=== PATIENT | female | born 1985 | race Caucasian/White ===

== ENCOUNTER 2017-08-12 11:23 | Outpatient (CLI) | payer BC ==
[2017-08-12 11:48] VITALS: BP 121/65; PULSE 96; RESP 16; TEMP 97.5
--- NOTE | 2017-08-13 06:28 | P.MSEPDOC ---
Presenting Problems - Arrival Data Date of Arrival on Unit: 08/12/17 Time of Arrival on Unit: 11:10 Mode of Transport: Ambulatory - Complaint OB-Reason for Admission/Chief Complaint: Pain, Other Comment: Non-productive cough lasting about three weeks with onset of right sided "rib" pain about a week ago. Rates pain 9/10 in intensity. Medical History - Information : 1 Para: 0 Term: 0 : 0 Abortions: Spontaneous or Elective: 0 Number of Living Children: 0 - Gestational Age Gestational Age by BARRETT (wks/days): 32 Weeks and 0 Days Review of Systems - Review of Systems Constitutional: No problems Breast: No problems ENT: No problems Cardiovascular: No problems Respiratory: No problems Gastrointestinal: No problems Genitourinary: No problems Musculoskeletal: No problems Neurological: No problems Skin: No problems Vital Signs - Temperature Temperature: 97.5 F Temperature Source: Temporal Artery Scan - Pulse Pulse Oximetery Pulse Rate: 96 Pulse Assessment Method: Pulse Oximetry - Respirations Respiratory Rate: 16 Oxygen Delivery Method: Room Air O2 Sat by Pulse Oximetry: 100 - Blood Pressure Right Arm Blood Pressure: 121/65 Blood Pressure Mean: 83 Blood Pressure Source: Automatic Cuff Medical Screen Scoring (Pre) - Cervical Exam Dilation: Exam Deferred Effacement: Exam Deferred - Uterine Contractions Frequency: N/A Duration: N/A Intensity: N/A - Maternal Vital Signs Maternal Temperature: N/A Maternal Blood Pressure: N/A Signs of Preeclampsia: N/A Maternal Respirations: N/A - Pain Assessment Pain Location and Character: Right Pain Scale Used: Numeric (1 - 10) Pain Intensity: 9 Pain Management Goal: 0 Pain Description: Sharp, Stabbing Pain Radiation Location: n/a Pain Frequency: Intermittent Pain Duration: 1 Pain Duration Units: week Pain Behavior: Vocalization Effects of Pain: none Pain Aggravating Factors: Cough and Deep Breathe, Coughing, Position Pharmacological Interventions: Discuss Pain Med Options Non-Pharmacological Interventions: Inactivity - Maternal Trauma Maternal Trauma: N/A - Assessment Baseline FHR: 135 Heart Rate - NICHD Category: Category I (Normal) = 0 NST: Reactive Position: N/A Station: N/A - Total Score Total Score (Pre): 0 - Level of Risk Level of Risk: Low (0-5) Physician Notification (Pre) - Physician Notified Physician Notified Date: 08/12/17 Physician Notified Time: 11:29 Physician/Practitioner Notifed:: Wil Spoke With: Wil New Order Received: Yes (Discharge from L&D and have patient f/u in ED for symptoms) - Notification Comment Comment: Cleared by OB, patient to follow up in the emergency department for evaluation of cough and right-sided rib pain. Disposition - Disposition OB Disposition: Discharge to home, Written follow up instructions reviewed Discharge Date: 08/12/17 Discharge Time: 11:40 I agree with the RN Medical Screening Exam: Yes Risk & Benefit of care provided described in d/c instruction: Yes Diagnosis: PAIN, UNSPECIFIED
== END 2017-08-12 11:40 | disposition home or self-care (01) ==
LOC: FBPOP 11:23
PROVIDERS: ATTEND Obstetrics & Gynecology
DX: O26.893 Other specified pregnancy related conditions, third trimester (principal); R07.81 Pleurodynia; R05 Cough; Z3A.32 32 weeks gestation of pregnancy
CPT/HCPCS: 59025; 99213

== ENCOUNTER 2017-08-12 11:46 | Emergency (ER) | payer BC ==
[2017-08-12 11:58] VITALS: BP 115/56; PULSE 104; RESP 18; TEMP 98.9
--- NOTE | 2017-08-12 12:33 | ED ---
General Adult HPI - General Chief complaint: Recheck/Abnormal Lab/Rx Stated complaint: Rib pain Time Seen by Provider: 08/12/17 12:16 Source: patient, RN notes reviewed Mode of arrival: ambulatory Limitations: no limitations - History of Present Illness Initial comments: This is a 32-year-old female, currently 32 weeks , who presents to the emergency department with chief complaint of right rib pain. Patient states that she has been having a non-productive, dry cough for the past few weeks. She states that it becomes worse at night. Denies any fevers or chills. She states that her LABORATORY MILLER is Dr. De La Torre. She states that this morning when she woke up her right ribs were more painful than they have been. She states that she was in excruciating pain. She was evaluated by labor and delivery before presenting to the emergency department and was cleared. Baby is doing well. Patient denies any abdominal pain, nausea or vomiting, vaginal bleeding or abnormal discharge. She states that she is worried that she may have cracked a rib. - Related Data Home Medications Medication Instructions Recorded Confirmed Cetirizine HCl [Zyrtec] 1 tab PO DAILY 08/12/17 08/12/17 Pnv,Calcium 72/Iron/Folic Acid 1 tab PO DAILY 08/12/17 08/12/17 [ Plus Tablet] Previous Rx's Medication Instructions Recorded Azithromycin [Zithromax Z-pack] 0 mg PO DIRECTED #6 tab 08/12/17 Allergies Allergy/AdvReac Type Severity Reaction Status Date / Time No Known Allergies Allergy Verified 08/12/17 12:21 Review of Systems ROS Statement: Those systems with pertinent positive or pertinent negative responses have been documented in the HPI. ROS Other: All systems not noted in ROS Statement are negative. Past Medical History Past Medical History: No Reported History Additional Past Medical History / Comment(s): gluten sensitive History of Any Multi-Drug Resistant Organisms: None Reported Past Surgical History: Orthopedic Surgery Additional Past Surgical History / Comment(s): abd lap, breast aug Past Psychological History: No Psychological Hx Reported Smoking Status: Never smoker Past Alcohol Use History: None Reported Past Drug Use History: None Reported General Exam - General Exam Comments Initial Comments: General: Awake and alert, well-developed; in no apparent distress. HEENT: Head atraumatic, normocephalic. Pupils are equal, round and reactive to light. Extraocular movements intact. Oropharynx moist without erythema or exudate. Neck: Supple. Normal ROM. Cardiovascular: Regular rate and rhythm. No murmurs, rubs or gallops. Chest symmetrical. Tenderness along right posterolateral ribs. Respiratory: Lungs clear to auscultation bilaterally. No wheezes, rales or rhonchi. Normal respiratory effort with no use of accessory muscles. Musculoskeletal: Normal ROM, no tenderness bilateral upper and lower extremities. Ambulating normally. Skin: [place], warm and dry. Neurological: Alert and oriented x3. CN II-XII grossly intact. Speech is fluent and answers are appropriate. No focal neuro deficits. Psychiatric: Normal mood and affect. No overt signs of depression or anxiety noted. Limitations: no limitations Course Vital Signs 08/12/17 08/12/17 11:55 12:15 Temperature 98.9 F Pulse Rate 104 H Respiratory 18 18 Rate Blood Pressure 115/56 O2 Sat by Pulse 99 Oximetry Medical Decision Making - Medical Decision Making This is a 32-year-old female, currently 32 weeks who presents to the emergency department with chief complaint of right rib pain. Patient has had a cough for the past few weeks and subsequently developed right-sided rib pain. She was evaluated by labor and delivery prior to arrival and was told that baby is doing well. There is tenderness on palpation of the right posterolateral ribs. Lungs are clear to auscultation bilaterally. I discussed this case with attending physician, Dr. Morales. Recommended avoiding chest x-ray and starting patient on azithromycin to cover any bacterial lung infection. I educated patient that if she did bruise her ribs from the frequent coughing that the only treatment for this is pain control. Recommended Tylenol if needed. Patient is in no acute distress and will be discharged home at this time. She is in agreement with plan and voices understanding. All questions answered. Disposition Clinical Impression: Rib pain on right side Disposition: HOME SELF-CARE Condition: Good Instructions: Chest Wall Pain (ED), Rib Contusion (ED) Additional Instructions: Please take medications as prescribed. Please follow up with primary care provider within 1-2 days. Return to emergency department if symptoms should worsen or any concerns arise. Prescriptions: Azithromycin [Zithromax Z-pack] 0 mg PO DIRECTED #6 tab Is patient prescribed a controlled substance at d/c from ED?: No Referrals: None,Stated [Primary Care Provider] - 1-2 days Time of Disposition: 12:32
== END 2017-08-12 12:39 | disposition home or self-care (01) ==
LOC: EC 11:46
DX: O99.89 Other specified diseases and conditions complicating pregnancy, childbirth and the puerperium (principal); R07.81 Pleurodynia; R05 Cough; Z3A.32 32 weeks gestation of pregnancy; Z79.899 Other long term (current) drug therapy
CPT/HCPCS: 99283

== ENCOUNTER 2017-10-01 05:15 | Outpatient (CLI) | payer BC ==
[2017-10-01 05:48] VITALS: BP 120/81; PULSE 83; RESP 16; TEMP 96.9
--- NOTE | 2017-10-01 07:13 | P.MSEPDOC ---
Presenting Problems - Arrival Data Date of Arrival on Unit: 10/01/17 Time of Arrival on Unit: 05:15 Mode of Transport: Ambulatory - Complaint OB-Reason for Admission/Chief Complaint: Possible Onset of Labor Comment: contractions 5-6 minutes apart starting at 0200 this morning Medical History - Information : 1 Para: 0 Term: 0 : 0 Abortions: Spontaneous or Elective: 0 Number of Living Children: 0 - Gestational Age Gestational Age by BARRETT (wks/days): 39 Weeks and 1 Days Review of Systems - Review of Systems Constitutional: No problems Breast: No problems ENT: No problems Cardiovascular: No problems Respiratory: No problems Gastrointestinal: No problems Genitourinary: No problems Musculoskeletal: No problems Neurological: No problems Skin: No problems Vital Signs - Temperature Temperature: 96.9 F Temperature Source: Temporal Artery Scan - Pulse Right Sitting Brachial Pulse Rate: 83 Pulse Assessment Method: Automatic Cuff - Respirations Respiratory Rate: 16 Oxygen Delivery Method: Room Air O2 Sat by Pulse Oximetry: 98 - Blood Pressure Right Arm Sitting Blood Pressure: 120/81 Blood Pressure Mean: 94 Blood Pressure Source: Automatic Cuff Medical Screen Scoring (Pre) - Cervical Exam Dilation: 1-3 cm = 1 Membranes: Intact - Uterine Contractions Frequency: > or = 36 weeks =2 Duration: > 40 seconds = 2 Intensity: N/A - Maternal Vital Signs Maternal Temperature: N/A Maternal Blood Pressure: N/A Signs of Preeclampsia: N/A Maternal Respirations: N/A - Pain Assessment Pain Location and Character: Lower, Back Pain Scale Used: Numeric (1 - 10) Pain Intensity: 8 Pain Management Goal: 3 Pain Description: *Acute, Cramping, Pressure Pain Radiation Location: abdomen Pain Frequency: Intermittent Pain Duration: 3 Pain Duration Units: Hours Pain Behavior: Facial Grimacing, Vocalization Pain Aggravating Factors: Sitting Non-Pharmacological Interventions: Position/Reposition - Assessment Baseline FHR: 145 Heart Rate - NICHD Category: Category I (Normal) = 0 NST: Reactive Position: N/A - Total Score Total Score (Pre): 5 - Level of Risk Level of Risk: Low (0-5) Physician Notification (Pre) - Physician Notified Physician Notified Date: 10/01/17 Physician Notified Time: 06:20 Physician/Practitioner Notifed:: afia Spoke With: afia New Order Received: Yes - Notification Comment Comment: dr oreilly at bedside. ordered to d/c pt home if no change after an hour. will see pt in office thursday 7-16 if she does not go into labor before. Disposition - Disposition OB Disposition: Discharge to home Discharge Date: 10/01/17 Discharge Time: 06:40 I agree with the RN Medical Screening Exam: Yes Risk & Benefit of care provided described in d/c instruction: Yes Diagnosis: FALSE LABOR AT OR AFTER 37 COMPLETED WEEKS OF GESTATION
== END 2017-10-01 06:40 | disposition home or self-care (01) ==
LOC: FBPOP 05:15
PROVIDERS: ATTEND Obstetrics & Gynecology
DX: O47.1 False labor at or after 37 completed weeks of gestation (principal); Z3A.39 39 weeks gestation of pregnancy
CPT/HCPCS: 59025; 99213

== ENCOUNTER 2017-10-04 16:12 | Outpatient (CLI) | payer BC ==
[2017-10-04 17:34] VITALS: BP 119/63; PULSE 100; RESP 18; TEMP 97.7
--- NOTE | 2017-10-05 09:30 | P.MSEPDOC ---
Presenting Problems - Arrival Data Date of Arrival on Unit: 10/04/17 Time of Arrival on Unit: 16:12 Mode of Transport: Ambulatory - Complaint OB-Reason for Admission/Chief Complaint: Possible Onset of Labor Comment: ctx started increasing in strength and frequency about 1400, 2-3 min apart Medical History - Information : 1 Para: 0 Term: 0 : 0 Abortions: Spontaneous or Elective: 0 Number of Living Children: 0 - Gestational Age Gestational Age by BARRETT (wks/days): 39 Weeks and 4 Days Review of Systems - Review of Systems Constitutional: No problems Breast: No problems ENT: No problems Cardiovascular: No problems Respiratory: No problems Gastrointestinal: No problems Genitourinary: No problems Musculoskeletal: No problems Neurological: No problems Skin: No problems Vital Signs - Temperature Temperature: 97.7 F Temperature Source: Temporal Artery Scan - Pulse Right Pulse Rate: 100 Pulse Assessment Method: Automatic Cuff - Respirations Respiratory Rate: 18 Oxygen Delivery Method: Room Air O2 Sat by Pulse Oximetry: 98 - Blood Pressure Right Arm Blood Pressure: 119/63 Blood Pressure Mean: 81 Blood Pressure Source: Automatic Cuff Medical Screen Scoring (Pre) - Cervical Exam Dilation: 1-3 cm = 1 Membranes: Intact - Uterine Contractions Frequency: > or = 36 weeks =2 Duration: > 40 seconds = 2 Intensity: N/A - Maternal Vital Signs Maternal Temperature: N/A Maternal Blood Pressure: N/A Signs of Preeclampsia: N/A Maternal Respirations: N/A - Pain Assessment Pain Location and Character: Back, Abdomen Pain Scale Used: Numeric (1 - 10) Pain Intensity: 5 Pain Management Goal: 2 Pain Description: *Acute, Tightness Pain Frequency: Intermittent Pain Duration: 2 Pain Duration Units: Hours Pain Behavior: Facial Grimacing Pain Aggravating Factors: Contractions Non-Pharmacological Interventions: Position/Reposition, Reduce Environmental Stimuli, Relaxation Technique - Maternal Trauma Maternal Trauma: N/A - Assessment Baseline FHR: 140 Heart Rate - NICHD Category: Category II (Indeterminate) = 3 NST: Reactive Position: N/A Station: N/A - Total Score Total Score (Pre): 8 - Level of Risk Level of Risk: Medium (6-9) Medical Screen Scoring (Post) - Cervical Exam Dilation: 1-3 cm = 1 Membranes: Intact - Uterine Contractions Frequency: > or = 36 weeks =2 Duration: > 40 seconds = 2 - Assessment Heart Rate: 125 Heart Rate - NICHD Category: Category I (Normal) = 0 NST: Reactive Position: N/A - Total Score Total Score (Post): 5 - Post Treatment Level of Risk Post Treatment Level of Risk: Low (0-5) Physician Notification (Post) - Physician Notified Physician Notified Date: 10/04/17 Physician Notified Time: 17:58 Spoke With: Pao New Order Received: Yes (discharge if no cervical record changer tester 2 hours) - Notification Comment Comment: no change after second hour Disposition - Disposition OB Disposition: Discharge to home, Written follow up instructions reviewed Discharge Date: 10/04/17 Discharge Time: 19:05 I agree with the RN Medical Screening Exam: Yes Risk & Benefit of care provided described in d/c instruction: Yes Diagnosis: FALSE LABOR AT OR AFTER 37 COMPLETED WEEKS OF GESTATION
== END 2017-10-04 19:05 | disposition home or self-care (01) ==
LOC: FBPOP 16:12
PROVIDERS: ATTEND Obstetrics & Gynecology
DX: O47.1 False labor at or after 37 completed weeks of gestation (principal); Z3A.39 39 weeks gestation of pregnancy
CPT/HCPCS: 59025; 99213

== ENCOUNTER 2017-10-05 17:00 | Inpatient (IN) | payer BC ==
--- NOTE | 2017-10-06 05:52 | P.HPOB ---
History of Present Illness H&P Date: 10/06/17 Chief Complaint: Maternal discomfort requesting induction of labor This patient is a pleasant 32-year-old 1 para 0 female estimated date of confinement 10/07/2017 estimated gestational age 39-6/7 weeks who presents to labor and delivery for requested induction of labor. Patient has been in labor and delivery couple times over the last few days with contractions and discomfort at this time is requesting induction of labor. care has been complicated by a EIF and she was referred to maternal- medicine for level III consultation. Evaluation of that time was negative. Patient is been followed with nonstress tests and has had normal surveillance. Patient is now presenting for requested induction of labor. Review of Systems Gastrointestinal: Reports heartburn Genitourinary: Reports Menstruation: Reports amenorrhea Past Medical History Past Medical History: No Reported History Additional Past Medical History / Comment(s): gluten sensitive; anorexia nervosa age 14-23. History of Any Multi-Drug Resistant Organisms: None Reported Past Surgical History: Orthopedic Surgery Additional Past Surgical History / Comment(s): abd lap, breast aug Past Anesthesia/Blood Transfusion Reactions: No Reported Reaction Past Psychological History: No Psychological Hx Reported Smoking Status: Never smoker Past Alcohol Use History: None Reported Past Drug Use History: None Reported Medications and Allergies Home Medications Medication Instructions Recorded Confirmed Type Cetirizine HCl [Zyrtec] 1 tab PO DAILY 08/12/17 10/04/17 History Pnv,Calcium 72/Iron/Folic Acid 1 tab PO DAILY 08/12/17 10/04/17 History [ Plus Tablet] Allergies Allergy/AdvReac Type Severity Reaction Status Date / Time No Known Allergies Allergy Verified 10/04/17 16:22 Exam - OBG Physical Exam Abdomen: bowel sounds normal, no diffuse tenderness, no bruit present, no guarding noted, no hepatomegaly, no splenomegaly, no mass Vulva: both: normal Vagina: normal moisture, no discharge Cervix: Cervix in the office is 1-2 cm dilated 50% effaced. Uterus: enlarged (Fundal height is 38 cm.) Results blood work shows she is O positive, rubella immune, RPR nonreactive, hepatitis B negative, HIV nonreactive, quad screen was negative, Glucola was normal, group B strep was negative, anatomy ultrasounds as above with a normal level III ultrasound. Estimated weight is approximately 8-8-1/2 pounds. Assessment and Plan Assessment: This is a pleasant 32-year-old 1 para 0 female 39-6/7 weeks gestation who is admitted to labor and delivery for requested induction of labor. Plan is induction of labor and anticipate vaginal delivery. (1) Third trimester Current Visit: Yes Status: Acute Code(s): Z34.93 - ENCNTR FOR SUPRVSN OF NORMAL PREG, UNSP, THIRD TRIMESTER SNOMED Code(s): 01959624 (2) Elective induction of labor planned Current Visit: Yes Status: Acute Code(s): ZKG3831 - SNOMED Code(s): 746684819
[2017-10-06] MEDS: LACTATED RINGERS 1,000 ML IV SCH ×5 (05:53→21:37)
[2017-10-06] MEDS ORDERED: CARBOPROST TROMETHAMINE 250 MCG/ML 1 ML AMP IM PRN (05:53)
[2017-10-06] MEDS ORDERED: METHYLERGONOVINE 0.2 MG/ML 1 ML AMP IM PRN (05:53)
[2017-10-06] MEDS ORDERED: OXYTOCIN 20 UNITS/1000 ML NS 1,000 ML IV SCH (05:53)
[2017-10-06] MEDS ORDERED: LIDOCAINE 1% (PF) 10 MG/ML (30 ML SDV) SQ PRN (05:53)
[2017-10-06] MEDS ORDERED: TERBUTALINE 1 MG/ML VIAL SQ PRN (05:53)
[2017-10-06] MEDS ORDERED: OXYTOCIN 10 UNIT/ML 1 ML VIAL IM PRN (05:53)
[2017-10-06 06:22] LABS: Basophils % (A) 0 %; Eosinophils # (A) 0.1 k/uL (0-0.7); Eosinophils % (A) 1 %; HCT 37.4 % (34.0-46.0); HGB 12.7 gm/dL (11.4-16.0); Lymphocytes # (A) 2.2 k/uL (1.0-4.8); Lymphocytes % (A) 19 %; MCH 31.2 pg (25.0-35.0); MCHC 33.9 g/dL (31.0-37.0); MCV 91.9 fL (80.0-100.0); Monocytes # (A) 0.6 k/uL (0-1.0); Monocytes % (A) 5 %; Neutrophils # (A) 8.7 k/uL (1.3-7.7); Neutrophils % (A) 73 %; Platelet Count 235 k/uL (150-450); RBC 4.07 m/uL (3.80-5.40); RDW 13.9 % (11.5-15.5); WBC 11.9 k/uL (3.8-10.6)
[2017-10-06] MEDS ORDERED: BUTORPHANOL 1 MG/ML 1 ML VIAL IV PRN (10:20)
[2017-10-06] MEDS ORDERED: ROPIVACAINE 100 MG, fentaNYL (PF) 200 MCG in SODIUM CHLORIDE 0.9% 76 ML EPIDURAL ONE (12:03)
[2017-10-06] MEDS ORDERED: AMPICILLIN 2,000 MG in SODIUM CHLORIDE 0.9% 100 ML IVPB STA (18:15)
[2017-10-06] MEDS ORDERED: ceFAZolin IN SWFI 2 GM/20 ML SYRINGE IVP ONE (19:47)
[2017-10-06] MEDS ORDERED: CITRIC ACID-SODIUM CITRATE 15 ML CUP PO ONE (19:47)
[2017-10-06] MEDS ORDERED: KETOROLAC 30 MG/ML 1 ML VIAL ONE (20:03)
[2017-10-06] MEDS ORDERED: OXYTOCIN 10 UNIT/ML 1 ML VIAL ONE (20:03)
[2017-10-06] MEDS ORDERED: MORPHINE SULFATE 10 MG/ML SYRINGE ONE (20:03)
[2017-10-06] MEDS ORDERED: MORPHINE SULFATE (PF) 0.3 MG/0.3 ML SYR ONE (20:03)
[2017-10-06] MEDS ORDERED: ONDANSETRON 4 MG/2 ML VIAL ONE (20:03)
[2017-10-06] MEDS ORDERED: ZOLPIDEM 5 MG TAB PO PRN (20:56)
[2017-10-06] MEDS ORDERED: ONDANSETRON 4 MG/2 ML VIAL IVP PRN (20:56)
[2017-10-06] MEDS ORDERED: METOCLOPRAMIDE 5 MG/ML 2 ML VIAL IVP PRN (20:56)
[2017-10-06] MEDS ORDERED: diphenhydrAMINE 50 MG CAP PO PRN (20:56)
[2017-10-06] MEDS ORDERED: diphenhydrAMINE 50 MG/ML 1 ML VIAL IVP PRN ×2 (20:56)
[2017-10-06] MEDS ORDERED: diphenhydrAMINE 25 MG CAP PO PRN (20:56)
[2017-10-06] MEDS ORDERED: NALOXONE 0.4 MG/ML 1 ML VIAL IV PRN (20:56)
--- NOTE | 2017-10-06 21:07 | P.OP ---
Date of Procedure: 10/06/17 Preoperative Diagnosis: #1: 39-6/7 week intrauterine . #2: Cephalopelvic dystocia and failure to descent. #3: Nonreassuring heart tones. Postoperative Diagnosis: Same Procedure(s) Performed: Primary low transverse section Anesthesia: epidural Surgeon: Rodo De La Torre Loan Manager #1: Ly Cedeno Estimated Blood Loss (ml): 800 Urine output (ml): 50 Pathology: none sent Condition: stable Disposition: floor Indications for Procedure: Please see dictated H&P for intimate details of this patient's admission. Brief summary this is a pleasant 32-year-old 1 para 0 female 39-6/7 weeks gestation who is admitted to labor and delivery this morning for induction of labor. Patient's had contractions on and off for the last several days and thought to be in early labor but continues to be uncomfortable and requesting induction at this time. Patient is admitted and is 1-2 cm dilated has artificial rupture membranes for clear fluid. Labor is induced and augmented with Pitocin per protocol. Patient's labor does progress and she received one dose of intrapartum Stadol and then an epidural for pain control. Patient does get complete but the head does not pass 0 station. She pushes for approximately 45 minutes and then began having some late decelerations. These do resolve with the usual resuscitative measures including shutting off the Pitocin and IV fluids. At this time I discussed with the patient and her my concerns and recommended proceed with section for delivery. Patient her agree in the understand the risk of this surgery including risks of infection, bleeding, possible injury bowel, bladder, risk of DVT and pulmonary embolism. All the patient's questions are answered written consent is obtained. Operative Findings: This is a vigorous viable female Apgars 8 and 9 delivery time was 2026 hours. It was in the right occiput transverse presentation with a nuchal cord 1. Description of Procedure: This patient has a Oliveira catheter placed to straight drain. She subsequent weight taken to the operating room where the epidural is dosed up for sufficient level of surgery. With adequate level of anesthesia she has abdominal prep and drape. Scalpel is then taken and a Pfannenstiel skin incision is then made. A second scalpel is taken down the fascia and the fascia scored with a knife. Fascial incision extended bilaterally using the [place] scissors. Fascia is dissected off the rectus muscles sharply. Rectus muscles are and the peritoneum was identified and entered sharply. Peritoneal incision extended superior and inferior without difficulty. Bladder blade is placed at this time. Bladder peritoneum was taken sharply off the lower uterine segment. Scalpels then taken and a low transverse uterine incision is then made. I enter the uterine cavity bluntly with a hemostat and there is loss of clear fluid. This incision is extended bluntly. Infant's head is then gently guided out of the pelvis and with fundal pressure delivered through the incision. It is right occiput posterior presentation. Nuchal cord 1 which is easily reduced. We then have delivery anterior posterior shoulders rest this infant's body. This is a vigorous viable female Apgars are 8 and 9 delivery time is 2026. If it has spontaneous respirations and good cry. Umbilical cord is doubly clamped and then cut and the is handed off to the nurses in attendance. The placenta is then manually extracted intact. The uterus is then externalized and uterine incision demarcated with Hoskins clamps. Uterine incision then closed in 0 Vicryl running locked fashion 2 layers. Excellent hemostasis is noted. Bladder peritoneum was then reapproximated using a 3-0 Vicryl. Again good reapproximation is noted. Excess fluid is removed from the abdomen and pelvis. Uterus tubes and ovaries appear normal for term gestation. Uterus placed back into the abdomen. Parietal peritoneum was then closed using 0 Vicryl running fashion. Rectus muscles are reapproximated in 0 Vicryl interrupted fashion. Fascia is then closed using 0 PDS. Fascial incision is intact and hemostatic. Subcutaneous tissue is then closed using a 3-0 Vicryl. Skin is and closed using mirela. All counts are correct 3. There are no complications. Infant and mother are stable in birthing room.
[2017-10-06] MEDS ORDERED: LANOLIN CREAM 5 GM TUBE TOPICAL PRN (21:09)
[2017-10-07] MEDS ORDERED: KETOROLAC 30 MG/ML 1 ML VIAL ONE (02:50)
[2017-10-07] MEDS: ceFAZolin IN SWFI 2 GM/20 ML SYRINGE IVP SCH ×2 (05:09→11:49)
--- NOTE | 2017-10-07 06:37 | P.PNOBGPC ---
Subjective - Subjective Patient reports: Reports appetite normal, Reports voiding normally, Reports pain well controlled, Reports ambulating normally Ramah: doing well Objective - Vital Signs Latest vital signs: Vital Signs Temp Pulse Resp BP Pulse Ox 10/06/17 22:53 98.4 F 100 17 121/84 10/06/17 22:23 106 H 17 123/60 10/06/17 21:53 103 H 18 127/74 96 10/06/17 21:38 96 18 117/62 100 10/06/17 21:23 104 H 17 113/55 100 10/06/17 21:08 115 H 15 124/55 100 10/06/17 20:53 97.7 F 101 H 16 128/69 97 Intake and Output 10/06/17 10/06/17 10/07/17 14:59 22:59 06:59 Intake Total 2000 Output Total 400 Balance 2000 -400 Intake: Intake, IV Titration 2000 Amount Lactated Ringers 1,000 ml 2000 @ 125 mls/hr IV .Q8H THEODORE Rx#:[id number] Output: Urine 400 Other: Voiding Method Indwelling Catheter Indwelling Catheter # Voids 0 - Exam Lungs: bilateral: normal Chest: Normal S1, Normal S2 Extremities: Present: normal Abdomen: Present: normal appearance, soft. Absent: distention, tenderness Incision: Present: normal, dry, intact Uterus: Present: normal, firm Assessment and Plan Assessment: Postoperative day #1. Patient is resting without complaints. Vital signs are stable she's afebrile. Initially she had some oozing from her incision but this is stopped. Patient is tolerating clear liquids and advanced to regular diet today uterus is firm nontender and her incision is intact and dry. Plan is to advance to regular diet, check CBC, encourage ambulation, and continue routine postoperative care. (1) Third trimester Current Visit: Yes Status: Acute Code(s): Z34.93 - ENCNTR FOR SUPRVSN OF NORMAL PREG, UNSP, THIRD TRIMESTER SNOMED Code(s): 75807501 (2) Elective induction of labor planned Current Visit: Yes Status: Acute Code(s): [id number] - SNOMED Code(s): 967573472
--- NOTE | 2017-10-07 06:40 | P.PN ---
Progress Note - Text Progress Note Date: 10/07/17 Postoperative day 1 status post section under epidural anesthesia and epidural Duramorph for postoperative analgesia.The patient is doing well, there is mild generalized skin itching. There are no other anesthesia related complications. Further management as per the patient primary team.
[2017-10-07] MEDS: LACTATED RINGERS 1,000 ML IV SCH (07:24)
[2017-10-07] MEDS: KETOROLAC 30 MG/ML 1 ML VIAL IVP PRN ×3 (08:28→20:57)
[2017-10-07] MEDS: SENNOSIDES-DOCUSATE SODIUM 1 EACH TAB PO SCH ×2 (08:30→19:33)
[2017-10-07 09:00] LABS: Basophils % (A) 0 %; Eosinophils # (A) 0.1 k/uL (0-0.7); Eosinophils % (A) 0 %; HCT 36.9 % (34.0-46.0); Lymphocytes # (A) 1.6 k/uL (1.0-4.8); Lymphocytes % (A) 8 %; MCH 30.2 pg (25.0-35.0); MCHC 32.4 g/dL (31.0-37.0); MCV 93.3 fL (80.0-100.0); Mean Platelet Volume 8.3; Monocytes # (A) 0.9 k/uL (0-1.0); Monocytes % (A) 4 %; Neutrophils # (A) 17.9 k/uL (1.3-7.7); Neutrophils % (A) 87 %; Platelet Count 228 k/uL (150-450); RBC 3.96 m/uL (3.80-5.40); RDW 13.8 % (11.5-15.5); WBC 20.6 k/uL (3.8-10.6)
[2017-10-07] MEDS: SIMETHICONE 80 MG CHEWABLE PO PRN (19:35)
[2017-10-07] MEDS ORDERED: SIMETHICONE 80 MG CHEWABLE PO SCH (22:00)
[2017-10-08] MEDS: ACETAMINOPHEN TAB 325 MG TAB PO PRN ×3 (01:08→14:13)
[2017-10-08] MEDS: SIMETHICONE 80 MG CHEWABLE PO PRN ×2 (04:23→14:14)
[2017-10-08] MEDS: IBUPROFEN 600 MG TAB PO PRN ×3 (04:23→20:14)
[2017-10-08 06:03] LABS: Basophils # (A) 0.1 k/uL (0-0.2); Basophils % (A) 0 %; Eosinophils # (A) 0.2 k/uL (0-0.7); Eosinophils % (A) 1 %; HCT 32.6 % (34.0-46.0); HGB 10.6 gm/dL (11.4-16.0); Lymphocytes # (A) 2.1 k/uL (1.0-4.8); Lymphocytes % (A) 14 %; MCH 30.8 pg (25.0-35.0); MCHC 32.6 g/dL (31.0-37.0); MCV 94.4 fL (80.0-100.0); Mean Platelet Volume 7.9; Monocytes # (A) 0.8 k/uL (0-1.0); Monocytes % (A) 5 %; Neutrophils # (A) 12.1 k/uL (1.3-7.7); Neutrophils % (A) 78 %; Platelet Count 213 k/uL (150-450); RBC 3.46 m/uL (3.80-5.40); RDW 14.2 % (11.5-15.5); WBC 15.6 k/uL (3.8-10.6)
--- NOTE | 2017-10-08 06:11 | P.PNOBGPC ---
Subjective - Subjective Patient reports: Reports appetite normal, Reports voiding normally, Reports pain well controlled, Reports ambulating normally : doing well, other (Jaundice) Objective - Vital Signs Latest vital signs: Vital Signs Temp Pulse Resp BP Pulse Ox 10/08/17 00:00 97.9 F 87 16 101/53 10/07/17 20:00 98.6 F 95 16 110/66 97 10/07/17 16:00 98.3 F 99 18 107/64 97 10/07/17 12:00 97.9 F 96 18 112/68 96 10/07/17 08:00 98.0 F 104 H 18 123/66 97 Intake and Output 10/07/17 10/07/17 10/08/17 14:59 22:59 06:59 Intake Total 600 Output Total 1150 Balance -1150 600 Intake: Oral 600 Output: Urine 1150 Other: # Voids 1 1 2 - Exam Lungs: bilateral: normal Chest: Normal S1, Normal S2 Extremities: Present: normal Abdomen: Present: normal appearance, soft. Absent: distention, tenderness Incision: Present: normal, dry, intact Uterus: Present: normal, firm - Labs Labs: Abnormal Lab Results - Last 24 Hours (Table) 10/07/17 10/08/17 Range/Units 07:51 05:29 WBC 20.6 H 15.6 H (3.8-10.6) k/uL RBC 3.46 L (3.80-5.40) m/uL Hgb 10.6 L (11.4-16.0) gm/dL Hct 32.6 L (34.0-46.0) % Neutrophils # 17.9 H 12.1 H (1.3-7.7) k/uL Assessment and Plan Assessment: Post operative day #2. Patient is resting without complaints. Vital signs are stable and she is afebrile. Uterus is firm nontender she's having normal lochia. Baby is having some issues with jaundice therefore they will continue to stay in the hospital. Plan is to continue routine postoperative care. (1) Third trimester Current Visit: Yes Status: Acute Code(s): Z34.93 - ENCNTR FOR SUPRVSN OF NORMAL PREG, UNSP, THIRD TRIMESTER SNOMED Code(s): 89503824 (2) Elective induction of labor planned Current Visit: Yes Status: Acute Code(s): SDH3843 - SNOMED Code(s): 695989969
[2017-10-08] MEDS: SENNOSIDES-DOCUSATE SODIUM 1 EACH TAB PO SCH ×2 (07:38→20:15)
[2017-10-08] MEDS ORDERED: ACETAMINOPHEN TAB 325 MG TAB ONE (23:00)
[2017-10-09] MEDS ORDERED: IBUPROFEN 600 MG TAB PO ONE (03:39)
--- NOTE | 2017-10-09 05:54 | P.PNOBGPC ---
Subjective - Subjective Patient reports: Reports appetite normal, Reports voiding normally, Reports pain well controlled, Reports ambulating normally : doing well, in NICU (Jaundice) Objective - Vital Signs Latest vital signs: Vital Signs Temp Pulse Resp BP Pulse Ox 10/08/17 15:53 98.1 F 95 18 125/70 98 10/08/17 08:00 97.9 F 77 18 111/61 98 Intake and Output 10/08/17 10/08/17 10/09/17 14:59 22:59 06:59 Other: # Voids 1 1 - Exam Lungs: bilateral: normal Chest: Normal S1, Normal S2 Extremities: Present: normal Abdomen: Present: normal appearance, soft. Absent: distention, tenderness Incision: Present: normal, dry, intact Uterus: Present: normal, firm - Labs Labs: Abnormal Lab Results - Last 24 Hours (Table) 10/08/17 Range/Units 05:29 WBC 15.6 H (3.8-10.6) k/uL RBC 3.46 L (3.80-5.40) m/uL Hgb 10.6 L (11.4-16.0) gm/dL Hct 32.6 L (34.0-46.0) % Neutrophils # 12.1 H (1.3-7.7) k/uL Assessment and Plan Assessment: Post operative day #3. Patient is resting without complaints. Patient is having some anxiety issues and therefore I'm going to give her some when necessary Xanax. Vital signs are stable she is afebrile. Uterus is firm nontender and her incision is intact and dry. CBC was normal. Patient is tolerating regular diet, ambulating, urinating without difficulty. Patient's baby is having issues with jaundice and requiring triple therapy therefore she will stay until tomorrow. Plan is to continue routine postoperative care. (1) Third trimester Current Visit: Yes Status: Acute Code(s): Z34.93 - ENCNTR FOR SUPRVSN OF NORMAL PREG, UNSP, THIRD TRIMESTER SNOMED Code(s): 41752062 (2) Elective induction of labor planned Current Visit: Yes Status: Acute Code(s): OTZ3956 - SNOMED Code(s): 740880228
[2017-10-09] MEDS ORDERED: ALPRAZolam 0.5 MG TAB PO PRN (05:55)
[2017-10-09] MEDS: SENNOSIDES-DOCUSATE SODIUM 1 EACH TAB PO SCH ×2 (07:23→22:03)
[2017-10-09] MEDS: IBUPROFEN 600 MG TAB PO PRN ×3 (10:04→22:02)
[2017-10-09] MEDS: ACETAMINOPHEN TAB 325 MG TAB PO PRN (18:44)
[2017-10-10] MEDS: IBUPROFEN 600 MG TAB PO PRN ×3 (03:47→19:02)
--- NOTE | 2017-10-10 06:59 | P.PNOBGPC ---
Subjective - Subjective Patient reports: Reports appetite normal, Reports voiding normally, Reports pain well controlled, Reports ambulating normally : doing well, in NICU (Jaundice) Objective - Vital Signs Latest vital signs: Vital Signs Temp Pulse Resp BP 10/10/17 00:00 97.9 F 87 15 124/78 10/09/17 16:00 98.3 F 84 16 125/80 10/09/17 08:00 98.1 F 81 16 97/53 Intake and Output 10/09/17 10/09/17 10/10/17 14:59 22:59 06:59 Other: # Voids 2 1 1 - Exam Lungs: bilateral: normal Chest: Normal S1, Normal S2 Extremities: Present: normal Abdomen: Present: normal appearance, soft. Absent: distention, tenderness Incision: Present: normal, dry, intact Uterus: Present: normal, firm Assessment and Plan Assessment: Postoperative day #4. Patient is resting without complaints. Vital signs are stable she is afebrile. Uterus is firm nontender her incision is intact and dry. Patient is tolerating regular diet, urinating, ambulating without difficulty. Patient's baby is still having issues with jaundice however patient will need to be discharged home today. Plan is to continue routine care discharge home today (1) Third trimester Current Visit: Yes Status: Acute Code(s): Z34.93 - ENCNTR FOR SUPRVSN OF NORMAL PREG, UNSP, THIRD TRIMESTER SNOMED Code(s): 77724165 (2) Elective induction of labor planned Current Visit: Yes Status: Acute Code(s): CFS3621 - SNOMED Code(s): 173769195
--- NOTE | 2017-10-10 07:06 | P.DS ---
Providers Date of admission: 10/06/17 05:42 Expected date of discharge: 10/10/17 Attending physician: Rodo De La Torre Primary care physician: Stated None - Discharge Diagnosis(es) (1) Third trimester Current Visit: Yes Status: Acute (2) Elective induction of labor planned Current Visit: Yes Status: Acute Hospital Course: Please see dictated H&P for intimate details of this patient's admission. Brief summary this is a pleasant 32-year-old female 39-6/7 weeks gestation admitted to labor and delivery for induction of labor/augmentation. Patient subsequently undergoes a primary low transverse section for cephalopelvic dystocia. Please see dictated operative note. Postoperatively patient does well and on postoperative 4 felt to be stable for discharge home follow up with me in 1 week. Procedures: Augmentation of labor and primary low transverse section Patient Condition at Discharge: Good Plan - Discharge Summary New Discharge Prescriptions: New Ibuprofen [Motrin] 600 mg PO Q6HR PRN #40 tab PRN Reason: Mild Pain Or Fever >= 100.5 No Action Cetirizine HCl [Zyrtec] 1 tab PO DAILY Pnv,Calcium 72/Iron/Folic Acid [ Plus Tablet] 1 tab PO DAILY Discharge Medication List Cetirizine HCl [Zyrtec] 1 tab PO DAILY 08/12/17 [History] Pnv,Calcium 72/Iron/Folic Acid [ Plus Tablet] 1 tab PO DAILY 08/12/17 [ History] Ibuprofen [Motrin] 600 mg PO Q6HR PRN #40 tab 10/10/17 [Rx] Follow up Appointment(s)/Referral(s): Rodo De La Torre MD [STAFF PHYSICIAN] - 10/21/17 8:45 am (I will schedule her 6 weeks appointment at her postoperative visit.) Patient Instructions/Handouts: (DC) Activity/Diet/Wound Care/Special Instructions: No heavy lifting or strenuous activity for 6 weeks. No intercourse or anything per vagina for 6 weeks. Please call if any fever, chills, excessive vaginal bleeding, and/or abdominal pain. Discharge Disposition: HOME SELF-CARE
[2017-10-10 08:39] VITALS: RESP 16
[2017-10-10] MEDS: SENNOSIDES-DOCUSATE SODIUM 1 EACH TAB PO SCH (08:40)
[2017-10-10 15:49] VITALS: BP 127/63; PULSE 76; TEMP 98.4
== END 2017-10-10 19:05 | disposition home or self-care (01) | DRG 766 ==
LOC: 4FBP 10-06 05:42
PROVIDERS: ADMIT Obstetrics & Gynecology; ATTEND Obstetrics & Gynecology
PROC: 3E033VJ Introduction of Other Hormone into Peripheral Vein, Percutaneous Approach (ICD-10-PCS; 2017-10-06)
PROC: 10907ZC Drainage of Amniotic Fluid, Therapeutic from Products of Conception, Via Natural or Artificial Opening (ICD-10-PCS; 2017-10-06)
PROC: 00HU33Z Insertion of Infusion Device into Spinal Canal, Percutaneous Approach (ICD-10-PCS; 2017-10-06)
PROC: 3E0R3BZ Introduction of Anesthetic Agent into Spinal Canal, Percutaneous Approach (ICD-10-PCS; 2017-10-06)
PROC: 10D00Z1 Extraction of Products of Conception, Low, Open Approach (ICD-10-PCS; principal; 2017-10-06 20:27)
DX: O33.9 Maternal care for disproportion, unspecified (principal); Z37.0 Single live birth; O99.344 Other mental disorders complicating childbirth; O32.4XX0 Maternal care for high head at term, not applicable or unspecified; O69.81X0 Labor and delivery complicated by cord around neck, without compression, not applicable or unspecified; O76 Abnormality in fetal heart rate and rhythm complicating labor and delivery; F41.9 Anxiety disorder, unspecified; Z3A.39 39 weeks gestation of pregnancy; Z86.59 Personal history of other mental and behavioral disorders
CPT/HCPCS: 85025

== ENCOUNTER → 2018-04-30 | Outpatient (CLI) | payer BC | END | disposition home or self-care (01) | LOC: LABWHC1 07:59 | PROVIDERS: ATTEND Obstetrics & Gynecology | DX: N91.2 Amenorrhea, unspecified (principal) | CPT/HCPCS: 36415; 84702 ==

== ENCOUNTER → 2018-10-07 | Outpatient (CLI) | payer BC | END | disposition home or self-care (01) | LOC: LAB 15:36 | PROVIDERS: ATTEND Obstetrics & Gynecology | DX: Z34.81 Encounter for supervision of other normal pregnancy, first trimester (principal) | CPT/HCPCS: 84702 ==

== ENCOUNTER → 2018-10-11 | Outpatient (CLI) | payer BC | END | disposition home or self-care (01) | LOC: LABWHC1 10:40 | PROVIDERS: ATTEND Obstetrics & Gynecology | DX: N92.6 Irregular menstruation, unspecified (principal) | CPT/HCPCS: 36415; 84702 ==

== ENCOUNTER → 2018-11-20 | Outpatient (CLI) | payer BC ==
[2018-11-20 09:40] LABS: HCT 40.2 % (34.0-46.0); HGB 13.5 gm/dL (11.4-16.0); MCH 30.4 pg (25.0-35.0); MCHC 33.5 g/dL (31.0-37.0); MCV 90.8 fL (80.0-100.0); Mean Platelet Volume 7.9; Platelet Count 243 k/uL (150-450); RBC 4.43 m/uL (3.80-5.40); RDW 14.2 % (11.5-15.5); WBC 8.9 k/uL (3.8-10.6)
[2018-11-20 17:04] LABS: African American GFR (CKD) 136.9 (60.0-200.0)
[2018-11-23 05:07] LABS: Toxoplasma Antibody (IgG) <3.0 IU/mL (<7.2); Toxoplasma Antibody (IgM) <3.0 AU/mL (<8.0)
== END | disposition home or self-care (01) ==
LOC: LABWHC1 09:06
PROVIDERS: ATTEND Obstetrics & Gynecology
DX: Z34.81 Encounter for supervision of other normal pregnancy, first trimester (principal)
CPT/HCPCS: 36415; 82565; 82947; 85027; 86762; 86777; 86778; 86780; 86850; 86900; 86901; 87340

== ENCOUNTER → 2019-03-12 | Outpatient (CLI) | payer BC ==
[2019-03-12 10:36] LABS: HCT 37.2 % (34.0-46.0); HGB 12.5 gm/dL (11.4-16.0); MCHC 33.5 g/dL (31.0-37.0); MCV 95.5 fL (80.0-100.0); Mean Platelet Volume 7.9; Platelet Count 235 k/uL (150-450); RDW 13.1 % (11.5-15.5); WBC 10.7 k/uL (3.8-10.6)
== END | disposition home or self-care (01) ==
LOC: LABWHC1 09:04
PROVIDERS: ATTEND Obstetrics & Gynecology
DX: Z34.82 Encounter for supervision of other normal pregnancy, second trimester (principal)
CPT/HCPCS: 36415; 82950; 84439; 84443; 84479; 85027

== ENCOUNTER 2019-04-19 12:24 | Observation (INO) | payer BC ==
[2019-04-19 12:57] LABS: Appearance,Urine Cloudy (Clear); Bacteria,Urine Occasional /hpf; Bilirubin,Urine Negative (Negative); Blood,Urine Negative (Negative); Color,Urine Yellow; Glucose,Urine (UA) Negative (Negative); Ketones,Urine 3+ (Negative); Leukocyte Esterase,Urine Moderate (Negative); Mucus,Urine Rare /hpf; Nitrite,Urine Negative (Negative); Protein,Urine Trace (Negative); RBC,Urine 3 /hpf (0-5); Specific Gravity,Urine 1.017 (1.001-1.035); Squamous Epithelial Cell,Urine 11 /hpf (0-4); Urobilinogen,Urine <2.0 mg/dL (<2.0); WBC,Urine 7 /hpf (0-5)
[2019-04-19] MEDS ORDERED: ONDANSETRON 4 MG/2 ML VIAL IVP STA (13:08)
[2019-04-19] MEDS: LACTATED RINGERS 1,000 ML IV SCH ×2 (13:15→14:31)
[2019-04-19 13:45] LABS: ALT 14 U/L (4-34); AST 25 U/L (14-36); African American GFR (CKD) >90 (>60 ml/min/1.73 sqM); Albumin 3.2 g/dL (3.5-5.0); Alkaline Phosphatase 119 U/L (38-126); Anion Gap 8 mmol/L; Blood Urea Nitrogen 7 mg/dL (7-17); Calcium 7.7 mg/dL (8.4-10.2); Carbon Dioxide 21 mmol/L (22-30); Chloride 105 mmol/L (98-107); Glucose 84 mg/dL (74-99); Non-African American GFR(CKD) >90 (>60 ml/min/1.73 sqM); Potassium 3.3 mmol/L (3.5-5.1); Sodium 134 mmol/L (137-145); Total Bilirubin 0.6 mg/dL (0.2-1.3); Total Protein 5.9 g/dL (6.3-8.2)
--- NOTE | 2019-04-19 13:52 | US ---
EXAMINATION TYPE: US OB >= 14 wk fetus DATE OF EXAM: 04/19/2019 COMPARISON: None CLINICAL HISTORY: variables vomiting, nausea TECHNIQUE: Transabdominal (TA) GESTATIONAL AGE / DATING Physician Established: (31 weeks/2 days) EDC: 06/19/19 Dates by LMP: unknown Dates by First Scan: No previous this is first scan Dates by Current Scan: (31 weeks/0 days) EDC: 06/21/19 SURVEY IUP: Single PLACENTA: Posterior/fundal PREVIA: No Previa JORGE: 12.9 cm Normal CERVICAL LENGTH (transabdominal: norm > 3.0cm): 3.4 cm BIOMETRY PRESENTATION: Vertex LIE: Longitudinal BPD: 8.1 cm 32 weeks / 2 days HC: 29.2 cm 32 weeks / 1 days AC: 27.1 cm 31 weeks / 1 days FL: 5.8 cm 30 weeks / 2 days ESTIMATED WEIGHT IN GRAMS: 1697 grams ESTIMATED WEIGHT IN LBS/OZ: 3 lbs. 12 oz. WEIGHT PERCENTAGE BASED ON ESTABLISHED DATES: 31.4% HC/AC: 1.08 Normal FL/AC: 21.39 Normal HEART RATE: 136 bpm RHYTHM: Normal IMPRESSION: Single live intrauterine with a sonographic age of 31 weeks and 0 days and estimated date o f delivery of 06/21/2019, concordant with menstrual age. Amniotic fluid index and heart rate are within normal limits.
[2019-04-19 14:10] VITALS: BP 116/64; PULSE 106; RESP 18; TEMP 97.6
[2019-04-19 14:16] LABS: Basophils % (A) 0 %; Eosinophils % (A) 0 %; HCT 36.2 % (34.0-46.0); HGB 12.1 gm/dL (11.4-16.0); Lymphocytes # (A) 0.7 k/uL (1.0-4.8); Lymphocytes % (A) 6 %; MCH 31.5 pg (25.0-35.0); MCHC 33.5 g/dL (31.0-37.0); MCV 93.9 fL (80.0-100.0); Mean Platelet Volume 8.3; Monocytes # (A) 0.4 k/uL (0-1.0); Monocytes % (A) 3 %; Neutrophils # (A) 11.9 k/uL (1.3-7.7); Neutrophils % (A) 90 %; Platelet Count 231 k/uL (150-450); RBC 3.85 m/uL (3.80-5.40); RDW 13.1 % (11.5-15.5); WBC 13.2 k/uL (3.8-10.6)
[2019-04-19] MEDS ORDERED: LACTATED RINGERS 1,000 ML IV SCH (19:00)
[2019-04-19] MEDS: ONDANSETRON 4 MG/2 ML VIAL IVP PRN (20:00)
[2019-04-19] MEDS ORDERED: FAMOTIDINE 20 MG/2 ML VIAL IV SCH (21:00)
--- NOTE | 2019-04-19 21:06 | P.HPOB ---
History of Present Illness H&P Date: 04/19/19 Chief Complaint: Nausea vomiting and dehydration This patient is a pleasant 34-year-old 2 para 1 female estimated gestational age 31-3/7 weeks who presents to labor and delivery with complaints of nausea vomiting and inability keep fluids down throughout the last day. Patient's care has been uncomplicated with the exception of an EIF and a negative maternal medicine evaluation. Patient's that she began getting sick was unable to keep anything down. She called our office instructed to come to labor and delivery for evaluation. Valuation her shows normal labs with the exception of 3+ ketones. She did have some small variable decelerations on heart rate tracing therefore complete ultrasound done that was normal. These did resolve with IV hydration. Review of Systems Constitutional: Reports as per HPI Gastrointestinal: Reports as per HPI, Reports heartburn, Reports nausea, Reports vomiting Genitourinary: Reports Menstruation: Reports amenorrhea Past Medical History Past Medical History: No Reported History Additional Past Medical History / Comment(s): gluten sensitive; anorexia nervosa age [age]. History of Any Multi-Drug Resistant Organisms: None Reported Past Surgical History: Section, Orthopedic Surgery Additional Past Surgical History / Comment(s): abd lap, breast aug, wisdom, embryo transfer Past Anesthesia/Blood Transfusion Reactions: No Reported Reaction Past Psychological History: Anxiety, Depression Smoking Status: Never smoker Past Alcohol Use History: None Reported Past Drug Use History: None Reported - Past Family History Father Family Medical History: Cancer, Hypertension Additional Family Medical History / Comment(s): prostate cancer Mother Family Medical History: Hypertension Medications and Allergies Home Medications Medication Instructions Recorded Confirmed Type Cetirizine HCl [Zyrtec] 1 tab PO DAILY 08/12/17 04/19/19 History Pnv,Calcium 72/Iron/Folic Acid 1 tab PO DAILY 08/12/17 04/19/19 History [ Plus Tablet] Omeprazole Magnesium [PriLOSEC OTC] 20 mg PO DAILY PRN 04/19/19 04/19/19 History Allergies Allergy/AdvReac Type Severity Reaction Status Date / Time No Known Allergies Allergy Verified 04/19/19 12:37 Exam Vital Signs Temp Pulse Resp BP 04/19/19 13:41 97.6 F 106 H 18 116/64 Intake and Output 04/19/19 04/19/19 04/19/19 06:59 14:59 22:59 Other: Weight 82.554 kg 82.554 kg - OBG Physical Exam Abdomen: bowel sounds normal, no diffuse tenderness, no bruit present, no guarding noted, no hepatomegaly, no splenomegaly, no mass Uterus: enlarged Results blood work shows she is O positive, rubella immune, RPR nonreactive, hepatitis B negative, quad screen was negative, maternity T 21 was normal 46 X,X, Glucola was normal, ultrasounds at 19 weeks showed an EIF referral to [facility] showed this only and "1 plane" Result Diagrams: 04/19/19 13:15 04/19/19 13:15 Abnormal Lab Results - Last 24 Hours (Table) 04/19/19 04/19/19 04/19/19 Range/Units 12:40 13:15 13:15 WBC 13.2 H (3.8-10.6) k/uL Neutrophils # 11.9 H (1.3-7.7) k/uL Lymphocytes # 0.7 L (1.0-4.8) k/uL Sodium 134 L (137-145) mmol/L Potassium 3.3 L (3.5-5.1) mmol/L Carbon Dioxide 21 L (22-30) mmol/L Creatinine 0.36 L (0.52-1.04) mg/dL Calcium 7.7 L (8.4-10.2) mg/dL Total Protein 5.9 L (6.3-8.2) g/dL Albumin 3.2 L (3.5-5.0) g/dL Urine Appearance Cloudy H (Clear) Urine Protein Trace H (Negative) Urine Ketones 3+ H (Negative) Ur Leukocyte Esterase Moderate H (Negative) Urine WBC 7 H (0-5) /hpf Ur Squamous Epith Cells 11 H (0-4) /hpf Urine Bacteria Occasional H (None) /hpf Urine Mucus Rare H (None) /hpf Assessment and Plan Assessment: This is a pleasant 34-year-old 2 para 1 female 31-2/7 weeks gestation admitted to labor and delivery with nausea vomiting and dehydration. Plan is admission for IV hydration, antibiotics. Patient's feeling better in the [facility] most likely discharge home. (1) 31 to 32 weeks gestation of Current Visit: Yes Status: Acute Code(s): ZQP6862 - SNOMED Code(s): 701047747 (2) Dehydration Current Visit: Yes Status: Acute Code(s): E86.0 - DEHYDRATION SNOMED Code(s): 82568016
--- NOTE | 2019-04-19 21:09 | P.MSEPDOC ---
Presenting Problems - Arrival Data Date of Arrival on Unit: 04/19/19 Time of Arrival on Unit: 12:24 Mode of Transport: Ambulatory - Complaint OB-Reason for Admission/Chief Complaint: Acute Nausea/Vomiting Comment: pt has had n/v since 2300 last night, vomiting every hour till 0500 today and now still dry heaving Medical History - Information : 2 Para: 1 Term: 1 : 0 Abortions: Spontaneous or Elective: 0 Number of Living Children: 1 - Gestational Age Gestational Age by BARRETT (wks/days): 32 Weeks and 5 Days Review of Systems - Review of Systems Constitutional: No problems Breast: No problems ENT: No problems Cardiovascular: No problems Respiratory: No problems Gastrointestinal: No problems Genitourinary: No problems Musculoskeletal: No problems Neurological: No problems Skin: No problems Vital Signs - Temperature Temperature: 97.6 F Temperature Source: Temporal Artery Scan - Pulse Right Brachial Pulse Rate: 106 Pulse Assessment Method: Automatic Cuff - Respirations Respiratory Rate: 18 Oxygen Delivery Method: Room Air - Blood Pressure Right Arm Blood Pressure: 116/64 Blood Pressure Mean: 81 Blood Pressure Source: Automatic Cuff Medical Screen Scoring (Pre) - Cervical Exam Dilation: Exam Deferred Effacement: Exam Deferred Membranes: Intact - Uterine Contractions Frequency: N/A Duration: N/A Intensity: N/A - Maternal Vital Signs Maternal Temperature: N/A Maternal Respirations: N/A - Maternal Trauma Maternal Trauma: N/A - Assessment - Baby A Baseline FHR: 145 Heart Rate - NICHD Category: Category II (Indeterminate) = 3 NST: Non-reactive = 3 Position: N/A Station: N/A - Total Score - Baby A Total Score - Baby A: 6 - Total Score - Baby B Total Score - Baby B: 0 - Total Score - Baby C Total Score - Baby C: 0 - Level of Risk - Baby A Level of Risk - Baby A: Medium (6-9) - Level of Risk - Baby B Level of Risk - Baby B: Low (0-5) - Level of Risk - Baby C Level of Risk - Baby C: Low (0-5) Physician Notification (Pre) - Physician Notified Physician Notified Date: 04/19/19 Physician Notified Time: 13:10 - Notification Comment Comment: orders to obtain cbc, cmp, ua, give lactated ringers 1 liter and zofran, obtain complete ultrasound Disposition - Disposition OB Disposition: Triage I agree with the RN Medical Screening Exam: Yes Risk & Benefit of care provided described in d/c instruction: Yes Diagnosis: DEHYDRATION (Patient is being admitted for IV hydration and anti- emetics)
[2019-04-20] MEDS: ONDANSETRON 4 MG/2 ML VIAL IVP PRN ×2 (01:20→08:06)
--- NOTE | 2019-04-20 06:04 | P.PN ---
Progress Note - Text Progress Note Date: 04/20/19 Patient is resting overnight with some nausea but no vomiting. She requests to go home today. Vital signs are stable and she is afebrile. monitoring is normal. My impression is that her dehydration has improved and she is felt to be stable for discharge home. Discharge home today and some oral Zofran given instructions return if she had recurrent problems with her nausea vomiting.
--- NOTE | 2019-04-20 06:08 | P.DS ---
Providers Date of admission: 04/19/19 17:56 Expected date of discharge: 04/20/19 Attending physician: Rodo De La Torre Primary care physician: Stated None - Discharge Diagnosis(es) (1) 31 to 32 weeks gestation of Current Visit: Yes Status: Acute (2) Dehydration Current Visit: Yes Status: Acute Hospital Course: Please see dictated H&P for intimate details of this patient's admission. Brief summary this is a pleasant 34-year-old 2 para 1 female 31-2/7 weeks gestation admitted for prolonged nausea vomiting and dehydration. Patient is admitted has an IV hydration. Patient's also given antibiotics and watched overnight. Patient had no vomiting overnight in the morning is felt to be stable for discharge home follow up with me next . Patient Condition at Discharge: Stable Plan - Discharge Summary New Discharge Prescriptions: New Ondansetron HCl [Zofran] 4 mg PO Q6HR PRN #30 tab PRN Reason: Nausea And Vomiting No Action Cetirizine HCl [Zyrtec] 1 tab PO DAILY Pnv,Calcium 72/Iron/Folic Acid [ Plus Tablet] 1 tab PO DAILY Omeprazole Magnesium [PriLOSEC OTC] 20 mg PO DAILY PRN PRN Reason: Heartburn Discharge Medication List Cetirizine HCl [Zyrtec] 1 tab PO DAILY 08/12/17 [History] Pnv,Calcium 72/Iron/Folic Acid [ Plus Tablet] 1 tab PO DAILY 08/12/17 [History] Omeprazole Magnesium [PriLOSEC OTC] 20 mg PO DAILY PRN 04/19/19 [History] Ondansetron HCl [Zofran] 4 mg PO Q6HR PRN #30 tab 04/20/19 [Rx] Follow up Appointment(s)/Referral(s): Rodo De La Torre MD [STAFF PHYSICIAN] - 04/28/19 (Please follow up next as scheduled.) Patient Instructions/Handouts: Dehydration (DC) Discharge Disposition: HOME SELF-CARE
== END 2019-04-20 08:15 | disposition home or self-care (01) ==
LOC: FBPOP 12:24 → 4FBP 17:56
PROVIDERS: ADMIT Obstetrics & Gynecology; ATTEND Obstetrics & Gynecology
DX: O21.2 Late vomiting of pregnancy (principal); O26.893 Other specified pregnancy related conditions, third trimester; E86.0 Dehydration; O99.343 Other mental disorders complicating pregnancy, third trimester; F41.9 Anxiety disorder, unspecified; F32.9 Major depressive disorder, single episode, unspecified; Z3A.31 31 weeks gestation of pregnancy; Z91.018 Allergy to other foods; Z86.59 Personal history of other mental and behavioral disorders; Z98.890 Other specified postprocedural states; Z98.82 Breast implant status; Z79.899 Other long term (current) drug therapy; Z80.42 Family history of malignant neoplasm of prostate; Z82.49 Family history of ischemic heart disease and other diseases of the circulatory system
CPT/HCPCS: 59025; 96376 ×2; 99214; 96361; 96374; 96375; 80053; 85025; 81001; 76805; G0378 ×2; J2405 ×2

== ENCOUNTER 2019-06-01 17:39 | Outpatient (CLI) | payer BC ==
[2019-06-01 18:37] VITALS: BP 110/65; PULSE 89; RESP 16; TEMP 97.9
== END 2019-06-01 18:25 | disposition home or self-care (01) ==
LOC: FBPOP 17:39
PROVIDERS: ATTEND Obstetrics & Gynecology
DX: O26.893 Other specified pregnancy related conditions, third trimester (principal); Z3A.37 37 weeks gestation of pregnancy
CPT/HCPCS: 59025; 99213

== ENCOUNTER → 2019-08-24 | Outpatient (CLI) | payer BC | END | disposition home or self-care (01) | LOC: LABWHC1 14:19 | PROVIDERS: ATTEND Surgery | DX: Z11.59 Encounter for screening for other viral diseases (principal) ==

== ENCOUNTER 2019-08-26 08:56 | Day surgery (SDC) | payer BC ==
[2019-08-25 09:39] VITALS: BMI 25.8
[~2019-08-26 08:56] MED LIST: DEXAMETHASONE SOD PHOSPHATE 10 MG/ML 1 ML VIAL IV ONE; HEPARIN SODIUM,PORCINE 5,000 UNIT/ML 1 ML VIAL SQ ONE; HYDROmorphone 0.5 MG/0.5 ML SYRINGE IVP PRN; MIDAZOLAM 2 MG/2 ML VIAL IV PRN; ONDANSETRON 4 MG/2 ML VIAL IVP ONE; SCOPOLAMINE 1.5MG/72HR PATCH TRANSDERM ONE
[2019-08-26 09:47] VITALS: RESP 16
[2019-08-26] MEDS: LACTATED RINGERS 1,000 ML IV SCH ×2 (09:55→13:31)
[2019-08-26] MEDS ORDERED: LIDOCAINE 1% (10MG/ML) FOR IV START INTRADERMA ONE (10:00)
[2019-08-26] MEDS ORDERED: BUPIVACAINE (PF) 0.25% 30 ML VIAL SQ ONE ×2 (10:35→11:02)
[2019-08-26] MEDS ORDERED: ROCURONIUM BROMIDE 10 MG/ML 5 ML VIAL IV ONE (10:41)
[2019-08-26] MEDS ORDERED: LIDOCAINE 1% INJ 10MG/ML (20 ML MDV) ONE (10:41)
[2019-08-26] MEDS ORDERED: SUCCINYLCHOLINE CHLORIDE 100 MG/5 ML SYR IV ONE (10:41)
[2019-08-26] MEDS ORDERED: diphenhydrAMINE 50 MG/ML 1 ML VIAL ONE (10:41)
[2019-08-26] MEDS ORDERED: fentaNYL (PF) 50 MCG/ML 2 ML AMP ONE (10:41)
[2019-08-26] MEDS ORDERED: PROPOFOL 10 MG/ML 20 ML VIAL IV ONE (10:41)
[2019-08-26] MEDS ORDERED: MIDAZOLAM 2 MG/2 ML VIAL ONE (10:41)
[2019-08-26] MEDS ORDERED: NEOSTIGMINE 1 MG/ML 10 ML VIAL ONE (10:41)
[2019-08-26] MEDS ORDERED: GLYCOPYRROLATE 0.2 MG/ML 2 ML VIAL ONE (10:41)
[2019-08-26] MEDS ORDERED: HYDROmorphone (PF) 1 MG/ML ONE (10:41)
[2019-08-26] MEDS ORDERED: KETOROLAC 30 MG/ML 1 ML VIAL ONE (10:41)
[2019-08-26] MEDS ORDERED: NALOXONE 0.4 MG/ML 1 ML VIAL IV PRN (11:39)
--- NOTE | 2019-08-26 11:43 | P.OP ---
Date of Procedure: 08/26/19 Procedure(s) Performed: PREOPERATIVE DIAGNOSIS: Chronic cholecystitis POSTOPERATIVE DIAGNOSIS: Same PROCEDURE: Laparoscopic cholecystectomy SURGEON: Stefani EBL: Minimal see anesthesia record ANESTHESIA: Gen. COMPLICATIONS: None OPERATIVE PROCEDURE: The patient was brought and placed on the operating room table in the supine position. The patient was placed under general anesthesia at that time. The abdomen was prepped and draped in the usual sterile fashion. A small vertical infraumbilical incision was made. The fascia was grasped with the Garrett forceps. The fascia was retracted anteriorly. The Veress needle was advanced into the peritoneal cavity. The saline drop test was normal. Insufflation took place up to 15 mmHg. A 5 mm optical trocar was advanced and the peritoneal cavity. 2 additional 5 mm trochars were placed in the right upper quadrant under direct visualization. A 12 mm trocar was advanced into the epigastric incision site. The gallbladder was retracted superiorly and laterally. The peritoneum overlying the infundibulum was bluntly dissected. The patient's cystic duct was visualized. The junction between the cystic duct common and hepatic duct was identified. The cystic duct was then divided after placement of 3 12 mm clips on the patient's side and one on the specimen side. The cystic artery was identified and clipped as well. A small vessel was seen along the gallbladder fossa and clipped as well. The gallbladder was then removed from the liver bed using electrocautery. The gallbladder was then removed from the epigastric trocar site with an Endo Catch bag. The gallbladder fossa was irrigated with saline. There was no evidence of any bleeding or biliary drainage seen. The fascia at the 12 millimeter site was closed using a Alvarado-You 0 Vicryl stitch. The trochars were then removed. The skin at all 4 sites was closed using a 4-0 Monocryl stitch. Skin glue was utilized on the incision sites. At the end of this procedure the sponge and needle counts were correct. DISPOSITION: Stable to the recovery room
[2019-08-26 11:53] VITALS: TEMP 98
[2019-08-26] MEDS ORDERED: ONDANSETRON 4 MG/2 ML VIAL IVP ONE (12:26)
[2019-08-26] MEDS ORDERED: oxyCODONE-APAP 5-325MG 1 EACH TAB PO ONE (12:40)
[2019-08-26 14:13] VITALS: BP 124/77; PULSE 80
== END 2019-08-26 14:00 | disposition home or self-care (01) ==
LOC: OR 08:56
PROVIDERS: ATTEND Surgery
DX: K81.1 Chronic cholecystitis (principal); Z79.899 Other long term (current) drug therapy; Z98.49 Cataract extraction status, unspecified eye; Z98.890 Other specified postprocedural states; Z82.49 Family history of ischemic heart disease and other diseases of the circulatory system; Z80.42 Family history of malignant neoplasm of prostate
CPT/HCPCS: 81025; 88304; 47562; J2250; J1200; J1644; J1100; J2710; J0690; J2405; J2001; J3010; J1885; J1170; J0330; J2704

== ENCOUNTER → 2020-08-15 | Outpatient (CLI) | payer BC ==
--- NOTE | 2020-08-15 13:05 | MM ---
Reason for exam: screening (asymptomatic). Baseline mammogram. History: Retro-pectoral silicone gel implants in both breasts, 2008. Physical Findings: Nurse did not find any significant physical abnormalities on exam. MG Screening Mammo Implant/CAD Bilateral CC and MLO view(s) were taken. The breast tissue is extremely dense which could obscure a lesion on mammography. Bilateral subpectoral silicone implants intact appearing. These results were verbally communicated with the patient and result sheet given to the patient on 08/15/20. ASSESSMENT: Benign, BI-RAD 2 RECOMMENDATION: Routine screening mammogram of both breasts in 1 year.
== END | disposition home or self-care (01) ==
LOC: RADMAMWWP 07:07
PROVIDERS: ATTEND Obstetrics & Gynecology
DX: Z12.31 Encounter for screening mammogram for malignant neoplasm of breast (principal)
CPT/HCPCS: 77067

== ENCOUNTER 2021-09-11 00:28 | Emergency (ER) | payer BC ==
[2021-09-11] MEDS ORDERED: SODIUM CHLORIDE 0.9% 1,000 ML IV STA (03:08)
[2021-09-11] MEDS ORDERED: MORPHINE SULFATE 4 MG/ML SYRINGE IV STA (03:08)
[2021-09-11] MEDS ORDERED: ONDANSETRON 4 MG/2 ML VIAL IVP STA (03:08)
[2021-09-11 03:15] VITALS: TEMP 98.2
--- NOTE | 2021-09-11 03:17 | ED ---
Abdominal Pain HPI <Jovita Hui Kari - Last Filed: 09/11/21 22:49> - General Source: patient, family, RN notes reviewed, old records reviewed Mode of arrival: wheelchair - History of Present Illness MD Complaint: abdominal pain -: days(s) Location: suprapubic Radiation: RLQ, suprapubic, R flank Migration to: RLQ Severity: severe Severity scale (1-10): 10 Quality: stabbing, sharp Improves With: nothing Worsens With: nothing Associated Symptoms: nausea Treatments Prior to Arrival: NSAIDs <Yaya Alexis - Last Filed: 09/18/21 20:15> - General Chief Complaint: Abdominal Pain Stated Complaint: Abd Pain Time Seen by Provider: 09/11/21 08:00 - History of Present Illness Initial Comments: This is a 36-year-old female DF for evaluation of severe abdominal pain, positive nausea no vomiting no fevers patient states it started suddenly tonight around 10 significant in the right side right-sided flank right-sided abdomen. Patient is again without fevers and was sudden onset did occur while sleeping. This woke her up from sleep she has have history of tubal and does have history of "OB surgery. (Yaya Alexis) - Related Data Home Medications Medication Instructions Recorded Confirmed Cetirizine HCl [Zyrtec] 10 mg PO DAILY 08/12/17 09/11/21 Cholecalciferol [Vitamin D3 (25 25 mcg PO DAILY 09/11/21 09/11/21 Mcg = 1000 Iu)] Ketoconazole 2% Shampoo [Nizoral] 1 applic TOPICAL Q3D 09/11/21 09/11/21 Multivitamins, Thera [Multivitamin 1 tab PO DAILY 09/11/21 09/11/21 (formulary)] Sulfac/Sulfur 8-4% Susp 1 applic TOPICAL DAILY 09/11/21 09/11/21 buPROPion SR [Wellbutrin SR] 150 mg PO BID 09/11/21 09/11/21 methocarbamoL [Robaxin] 1,000 mg PO HS PRN 09/11/21 09/11/21 norethindrone-e.estradioL-iron 1 tab PO DAILY 09/11/21 09/11/21 [Junel Fe 1 mg-20 Mcg Tablet] Previous Rx's Medication Instructions Recorded Ibuprofen [Motrin] 600 mg PO Q8HR PRN #30 tab 09/11/21 Allergies Allergy/AdvReac Type Severity Reaction Status Date / Time No Known Allergies Allergy Verified 09/11/21 08:52 Review of Systems ROS Other: All systems not noted in ROS Statement are negative. <EzJovita Kari - Last Filed: 09/11/21 22:49> ROS Other: All systems not noted in ROS Statement are negative. <Yaya Alexis - Last Filed: 09/18/21 20:15> ROS Statement: Those systems with pertinent positive or pertinent negative responses have been documented in the HPI. Past Medical History Past Medical History: No Reported History Additional Past Medical History / Comment(s): gluten sensitive; anorexia nervosa age [age]. History of Any Multi-Drug Resistant Organisms: None Reported Past Surgical History: Section, Cholecystectomy, Orthopedic Surgery Additional Past Surgical History / Comment(s): abd lap, breast aug, wisdom, embryo transfer Past Anesthesia/Blood Transfusion Reactions: No Reported Reaction Past Psychological History: Anxiety, Depression Smoking Status: Never smoker Past Alcohol Use History: None Reported Past Drug Use History: None Reported - Past Family History Father Family Medical History: Cancer Additional Family Medical History / Comment(s): prostate cancer Mother Family Medical History: Hypertension <Yaya Alexis - Last Filed: 09/18/21 20:15> General Exam General appearance: alert, in no apparent distress Head exam: Present: atraumatic, normocephalic, normal inspection Eye exam: Present: normal appearance, PERRL, EOMI. Absent: scleral icterus, conjunctival injection, periorbital swelling ENT exam: Present: normal exam, mucous membranes moist Neck exam: Present: normal inspection. Absent: tenderness, meningismus, lymphadenopathy Respiratory exam: Present: normal lung sounds bilaterally. Absent: respiratory distress, wheezes, rales, rhonchi, stridor Cardiovascular Exam: Present: regular rate, normal rhythm, normal heart sounds. Absent: systolic murmur, diastolic murmur, rubs, gallop, clicks GI/Abdominal exam: Present: soft, normal bowel sounds. Absent: distended, tenderness, guarding, rebound, rigid Extremities exam: Present: normal inspection, full ROM, normal capillary refill. Absent: tenderness, pedal edema, joint swelling, calf tenderness Back exam: Present: normal inspection Neurological exam: Present: alert, oriented X3, CN II-XII intact Psychiatric exam: Present: normal affect, normal mood Skin exam: Present: warm, dry, intact, normal color. Absent: rash <Yaya Alexis - Last Filed: 09/18/21 20:15> Course <Yaya Alexis - Last Filed: 09/18/21 20:15> Vital Signs 09/11/21 09/11/21 09/11/21 02:52 03:14 05:38 Temperature 98.0 F 98.2 F Pulse Rate 100 89 64 Respiratory 18 20 18 Rate Blood Pressure 132/77 138/88 107/66 O2 Sat by Pulse 98 100 100 Oximetry 09/11/21 09/11/21 07:28 09:29 Temperature Pulse Rate 77 75 Respiratory 16 18 Rate Blood Pressure 110/77 110/70 O2 Sat by Pulse 98 99 Oximetry - Reevaluation(s) Reevaluation #1: 09/11/21 05:58 medical record is reviewed (Yaya Alexis) Reevaluation #2: 09/11/21 05:58 patient is in alot of pain (Yaya Alexis) - Consultations Consultation #1: spoke w DR Cedeno for Dr De La Torre would like US pelvis and a call back (Yaya Alexis) Medical Decision Making - Lab Data Result diagrams: 09/11/21 03:41 09/11/21 03:41 <Jovita Hui - Last Filed: 09/11/21 22:49> - Lab Data Result diagrams: 09/11/21 03:41 09/11/21 03:41 <Yaya Alexis - Last Filed: 09/18/21 20:15> - Medical Decision Making Upon arrival patient was placed into room 4. She was pending ultrasound when I took over for the patient. Ultrasound demonstrates a hemorrhagic cyst on the right with a mild amount of free fluid in the pelvis that has a complicated ap pearance. Concern for ruptured hemorrhagic cyst. Called and spoke with Dr. Mims . Patient will follow up in OB clinic. Needs to have repeat ultrasound in 8 weeks. She will take Motrin and Tylenol for pain and return for any new or worsening symptoms. Patient discharged home in stable condition (Jovita Hui) - Lab Data Lab Results 09/11/21 09/11/21 09/11/21 Range/Units 03:41 03:41 03:41 WBC 12.6 H (3.8-10.6) k/uL RBC 4.08 (3.80-5.40) m/uL Hgb 12.2 (11.4-16.0) gm/dL Hct 37.0 (34.0-46.0) % MCV 90.5 (80.0-100.0) fL MCH 29.9 (25.0-35.0) pg MCHC 33.0 (31.0-37.0) g/dL RDW 12.7 (11.5-15.5) % Plt Count 270 (150-450) k/uL MPV 8.1 Neutrophils % 71 % Lymphocytes % 20 % Monocytes % 5 % Eosinophils % 1 % Basophils % 1 % Neutrophils # 9.0 H (1.3-7.7) k/uL Lymphocytes # 2.5 (1.0-4.8) k/uL Monocytes # 0.6 (0-1.0) k/uL Eosinophils # 0.2 (0-0.7) k/uL Basophils # 0.1 (0-0.2) k/uL Sodium (137-145) mmol/L Potassium (3.5-5.1) mmol/L Chloride (98-107) mmol/L Carbon Dioxide (22-30) mmol/L Anion Gap mmol/L BUN (7-17) mg/dL Creatinine (0.52-1.04) mg/dL Est GFR (CKD-EPI)AfAm (>60 ml/min/1.73 sqM) Est GFR (CKD-EPI)NonAf (>60 ml/min/1.73 sqM) Glucose (74-99) mg/dL Plasma Lactic Acid Stephon (0.7-2.0) mmol/L Calcium (8.4-10.2) mg/dL Total Bilirubin (0.2-1.3) mg/dL AST (14-36) U/L ALT (4-34) U/L Alkaline Phosphatase (38-126) U/L Total Protein (6.3-8.2) g/dL Albumin (3.5-5.0) g/dL Amylase (30-110) U/L Lipase (23-300) U/L Urine Color Yellow Urine Appearance Clear (Clear) Urine pH 6.0 (5.0-8.0) Ur Specific Roberts 1.018 (1.001-1.035) Urine Protein Negative (Negative) Urine Glucose (UA) Negative (Negative) Urine Ketones Negative (Negative) Urine Blood Negative (Negative) Urine Nitrite Negative (Negative) Urine Bilirubin Negative (Negative) Urine Urobilinogen <2.0 (<2.0) mg/dL Ur Leukocyte Esterase Negative (Negative) Urine HCG, Qual Not Detected (Not Detectd) 09/11/21 09/11/21 Range/Units 03:41 03:41 WBC (3.8-10.6) k/uL RBC (3.80-5.40) m/uL Hgb (11.4-16.0) gm/dL Hct (34.0-46.0) % MCV (80.0-100.0) fL MCH (25.0-35.0) pg MCHC (31.0-37.0) g/dL RDW (11.5-15.5) % Plt Count (150-450) k/uL MPV Neutrophils % % Lymphocytes % % Monocytes % % Eosinophils % % Basophils % % Neutrophils # (1.3-7.7) k/uL Lymphocytes # (1.0-4.8) k/uL Monocytes # (0-1.0) k/uL Eosinophils # (0-0.7) k/uL Basophils # (0-0.2) k/uL Sodium 136 L (137-145) mmol/L Potassium 3.8 (3.5-5.1) mmol/L Chloride 107 (98-107) mmol/L Carbon Dioxide 23 (22-30) mmol/L Anion Gap 6 mmol/L BUN 12 (7-17) mg/dL Creatinine 0.70 (0.52-1.04) mg/dL Est GFR (CKD-EPI)AfAm >90 (>60 ml/min/1.73 sqM) Est GFR (CKD-EPI)NonAf >90 (>60 ml/min/1.73 sqM) Glucose 85 (74-99) mg/dL Plasma Lactic Acid Stephon 0.7 (0.7-2.0) mmol/L Calcium 8.6 (8.4-10.2) mg/dL Total Bilirubin 0.3 (0.2-1.3) mg/dL AST 23 (14-36) U/L ALT 33 (4-34) U/L Alkaline Phosphatase 73 (38-126) U/L Total Protein 6.7 (6.3-8.2) g/dL Albumin 4.1 (3.5-5.0) g/dL Amylase 62 (30-110) U/L Lipase 46 (23-300) U/L Urine Color Urine Appearance (Clear) Urine pH (5.0-8.0) Ur Specific Roberts (1.001-1.035) Urine Protein (Negative) Urine Glucose (UA) (Negative) Urine Ketones (Negative) Urine Blood (Negative) Urine Nitrite (Negative) Urine Bilirubin (Negative) Urine Urobilinogen (<2.0) mg/dL Ur Leukocyte Esterase (Negative) Urine HCG, Qual (Not Detectd) Disposition Is patient prescribed a controlled substance at d/c from ED?: No Time of Disposition: 09:07 <Jovita Hui - Last Filed: 09/11/21 22:49> <Yaya Alexis - Last Filed: 09/18/21 20:15> Clinical Impression: RLQ abdominal pain, Hemorrhagic cyst Disposition: HOME SELF-CARE Condition: Stable Instructions (If sedation given, give patient instructions): Ovarian Cyst (ED), Ruptured Ovarian Cyst (ED) Additional Instructions: Alternate taking Motrin and Tylenol for pain control. You need to be seen in 8 weeks to have a repeat ultrasound. Call the OB office earlier to see if they want to schedule an office appointment. Return for any new or worsening symptoms Prescriptions: Ibuprofen [Motrin] 600 mg PO Q8HR PRN #30 tab PRN Reason: Pain Referrals: Nonstaff,Physician [REFERRING] - 1-2 days Rodo De La Torre MD [STAFF PHYSICIAN] - 1-2 days
[2021-09-11 04:07] LABS: Basophils # (A) 0.1 k/uL (0-0.2); Basophils % (A) 1 %; Eosinophils # (A) 0.2 k/uL (0-0.7); Eosinophils % (A) 1 %; HGB 12.2 gm/dL (11.4-16.0); Lymphocytes # (A) 2.5 k/uL (1.0-4.8); Lymphocytes % (A) 20 %; MCH 29.9 pg (25.0-35.0); MCV 90.5 fL (80.0-100.0); Mean Platelet Volume 8.1; Monocytes # (A) 0.6 k/uL (0-1.0); Monocytes % (A) 5 %; Neutrophils % (A) 71 %; Platelet Count 270 k/uL (150-450); RBC 4.08 m/uL (3.80-5.40); RDW 12.7 % (11.5-15.5); WBC 12.6 k/uL (3.8-10.6)
[2021-09-11 04:12] LABS: Appearance,Urine Clear (Clear); Bilirubin,Urine Negative (Negative); Blood,Urine Negative (Negative); Color,Urine Yellow; Glucose,Urine (UA) Negative (Negative); Ketones,Urine Negative (Negative); Leukocyte Esterase,Urine Negative (Negative); Nitrite,Urine Negative (Negative); Protein,Urine Negative (Negative); Specific Gravity,Urine 1.018 (1.001-1.035); Urobilinogen,Urine <2.0 mg/dL (<2.0)
--- NOTE | 2021-09-11 04:14 | CT ---
EXAM: CT Abdomen and Pelvis Without Intravenous Contrast CLINICAL HISTORY: ITS.REASON CT Reason: abdominal pain TECHNIQUE: Axial computed tomography images of the abdomen and pelvis without intravenous contrast. CTDI is 9.2 mGy and DLP is 478.7 mGy-cm. This CT exam was performed using one or more of the following dose reduction techniques: automated exposure control, adjustment of the mA and/or kV according to patient size, and/or use of iterative reconstruction technique. COMPARISON: No relevant prior studies available. FINDINGS: Lung bases: Unremarkable. No mass. No consolidation. ABDOMEN: Liver: Unremarkable. Gallbladder and bile ducts: Cholecystectomy. No ductal dilation. Pancreas: Unremarkable. No ductal dilation. Spleen: Unremarkable. No splenomegaly. Adrenals: Unremarkable. No mass. Kidneys and ureters: Unremarkable. No obstructing stones. No hydronephrosis. Stomach and bowel: Unremarkable. No obstruction. No mucosal thickening. PELVIS: Appendix: The appendix is not identified. No findings to suggest acute appendicitis. Bladder: Air within the bladder. No bladder wall thickening. No stones. Reproductive: Suggestion of a possible cystic structure in the right adnexa. ABDOMEN and PELVIS: Intraperitoneal space: Small to moderate amount of free fluid in the pelvis. There is some higher density material within the fluid which could represent blood component. No free air. Bones/joints: No acute fracture. No dislocation. Soft tissues: Unremarkable. Vasculature: Unremarkable. No abdominal aortic aneurysm. Lymph nodes: Unremarkable. No enlarged lymph nodes. IMPRESSION: Small to moderate amount of free fluid in the pelvis with some higher density component to the fluid which could represent hemorrhagic material. There is also the suggestion of a cystic structure in the right adnexa which may represent a complex or hemorrhagic cyst. Consider further evaluation with pelvic sonography. The appendix is not clearly identified.
[2021-09-11 04:15] LABS: ALT 33 U/L (4-34); AST 23 U/L (14-36); African American GFR (CKD) >90 (>60 ml/min/1.73 sqM); Albumin 4.1 g/dL (3.5-5.0); Alkaline Phosphatase 73 U/L (38-126); Amylase 62 U/L (30-110); Anion Gap 6 mmol/L; Blood Urea Nitrogen 12 mg/dL (7-17); Calcium 8.6 mg/dL (8.4-10.2); Carbon Dioxide 23 mmol/L (22-30); Chloride 107 mmol/L (98-107); Glucose 85 mg/dL (74-99); Lipase 46 U/L (23-300); Non-African American GFR(CKD) >90 (>60 ml/min/1.73 sqM); Potassium 3.8 mmol/L (3.5-5.1); Sodium 136 mmol/L (137-145); Total Bilirubin 0.3 mg/dL (0.2-1.3); Total Protein 6.7 g/dL (6.3-8.2)
[2021-09-11] MEDS ORDERED: HYDROmorphone 1 MG/ML 1 ML SYRINGE IVP STA (05:29)
--- NOTE | 2021-09-11 08:35 | US ---
EXAMINATION TYPE: US transvaginal DATE OF EXAM: 09/11/2021 COMPARISON: CT scan 09/11/2021 CLINICAL HISTORY: pain. RLQ pain last night, Ct showed right ovarian cyst TECHNIQUE: TV. Transvaginal sonographic Date of LMP: 09/06/2021 EXAM MEASUREMENTS: Uterus: 10.8 x 6.5 x 5.3 cm Endometrial Stripe: 0.9 cm Right Ovary: 3.5 x 3.5 x 2.9 cm Left Ovary: 2.3 x 2.4 x 1.7 cm 1. Uterus: Anteverted wnl 2. Endometrium: wnl 3. Right Ovary: 2.0 x 1.9 x 2.0cm, irregular walled cyst, might be involuting 4. Left Ovary: wnl 5. Bilateral Adnexa: wnl 6. Posterior cul-de-sac: mild free fluid with internal debris, probable blood IMPRESSION: 1. There is a 2 cm irregular wall complex cyst right ovary. Can't represent a involuting cyst or hemo rrhagic cyst. Follow resolution to exclude underlying cystic neoplasm. Correlation with beta hCG to e xclude underlying ectopic 2. Small amount of free fluid in the pelvis with some internal debris could represent a component of hemorrhage. Correlate clinically.
[2021-09-11 09:30] VITALS: BP 110/70; PULSE 75; RESP 18
== END 2021-09-11 09:15 | disposition home or self-care (01) ==
LOC: EC 00:28
DX: N83.291 Other ovarian cyst, right side (principal)
CPT/HCPCS: 36415; 80053; 82150; 83605; 83690; 85025; 81003; 81025; 93975; 76830; 74176; 99284; 96374; 96375; 96361; J2270; J2405; J1170

== ENCOUNTER → 2023-01-23 | Outpatient (CLI) | payer BC ==
--- NOTE | 2023-01-26 08:09 | MM ---
Reason for Exam: Screening (asymptomatic). Last mammogram was performed 2 year(s) and 6 month(s) ago. Patient History: Menarche at age 11. First Full-Term at age 32. Late child-bearing (after 30). Premenopausal. 2009, Bilateral Implants. Risk Values: Brianna 5 year model risk: 0.8%. NCI Lifetime model risk: 13.6%. Prior Study Comparison: 08/15/2020 Bilateral Screening Mammogram, [facility]. Tissue Density: There are scattered fibroglandular densities. Findings: Analyzed By CAD. Pattern appears symmetrical and stable. Bilateral breast prostheses are present. There is a small rounded density upper outer aspect left breast which appears to be present previously. No interval growth is evident. No suspicious groups of microcalcifications, spiculated or lobular masses, architectural distortion or other secondary signs of malignancy are mammographically apparent. Overall Assessment: Benign, BI-RAD 2 Management: Screening Mammogram of both breasts in 1 year. A negative mammogram report should not preclude additional follow up of suspicious palpable abnormalities. Patient should continue monthly self breast exam. A clinical breast exam by your physician is recommended on an annual basis and results should be correlated with mammographic findings. Electronically signed and approved by: Geovanni Cerna D.O. Radiologis
== END | disposition home or self-care (01) ==
LOC: RADMAMWWP 06:51
PROVIDERS: ATTEND Obstetrics & Gynecology
DX: Z12.31 Encounter for screening mammogram for malignant neoplasm of breast (principal)
CPT/HCPCS: 77063; 77067